=== PATIENT | male | born 2000 | race Caucasian/White ===

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

== ENCOUNTER 2022-04-08 10:40 | Outpatient (CLI) | payer OTHER, SELFPAY ==
[2022-04-08 11:01] VITALS: BMI 23.1
== END 2022-04-08 11:04 | disposition home or self-care (01) ==
PROVIDERS: Visit Provider Nurse Practitioner Family
DX: Z11.1 Encounter for screening for respiratory tuberculosis (principal)
CPT/HCPCS: 86580

== ENCOUNTER → 2022-04-23 09:30 | Outpatient (CLI) | payer OTHER, SELFPAY | PROVIDERS: Visit Provider Nurse Practitioner Family | DX: Z11.1 Encounter for screening for respiratory tuberculosis (principal) | CPT/HCPCS: 86580 ==

== ENCOUNTER → 2022-04-30 11:32 | Outpatient (CLI) | payer OTHER, SELFPAY | PROVIDERS: Visit Provider Nurse Practitioner | DX: Z11.1 Encounter for screening for respiratory tuberculosis (principal) | CPT/HCPCS: 86580 ==